=== PATIENT | male | born 1995 | race Caucasian/White ===

== ENCOUNTER 2024-11-27 16:32 | Inpatient (IN) | payer OTHER ==
[~2024-11-27] VITALS: Ht 162.6 cm; Wt 76.9 kg
[2024-11-27 17:09] LABS: BASOPHILS % (AUTO) 0.3 % (0.0-2.0); EOSINOPHILS % (AUTO) 1.9 % (1.0-6.0); HEMATOCRIT 36.5 % (41-53); HEMOGLOBIN 12.7 g/dL (13.5-17.5); LYMPHOCYTES # (AUTO) 1.4 K/uL (1.0-4.8); LYMPHOCYTES % (AUTO) 19.3 % (22.0-44.0); MEAN CORPUSCULAR HEMOGLOBIN 34.2 pg (26.0-34.0); MEAN CORPUSCULAR HGB CONC 34.9 G/dL (31.0-37.0); MEAN CORPUSCULAR VOLUME 98 fL (80-100); MONOCYTES # (AUTO) 0.4 K/uL (0.1-1.0); NEUTROPHILS # (AUTO) 5.2 K/uL (1.8-7.7); NEUTROPHILS % (AUTO) 72.5 % (40.0-70.0); PLATELET COUNT (AUTO) 145 K/uL (150-450); RED BLOOD CELL COUNT(AUTO) 3.73 MIL/uL (4.50-5.90); RED CELL DISTRIBUTION WIDTH 14.4 % (11.5-14.5); WHITE BLOOD COUNT (AUTO) 7.1 K/uL (4.5-11.0)
[2024-11-27 17:18] LABS: ANION GAP 10 mmol/L (8-16); CALCIUM, TOTAL 8.3 mg/dL (8.8-10.5); CARBON DIOXIDE 26 mmol/L (22-29); CHLORIDE 104 mmol/L (98-107); CREATININE 0.61 mg/dL (0.60-1.30); GLOMERULAR FILTR. RATE CALC > 60 mL/min (>60); GLUCOSE,RANDOM 101 mg/dL (70-110); POTASSIUM 3.4 mmol/L (3.5-5.1); SODIUM SERUM 140 mmol/L (136-145); UREA NITROGEN, BLOOD 2 mg/dL (7-18)
[2024-11-27 17:24] LABS: PROTHROMBIN TIME 11.1 SEC (9.4-11.6)
[2024-11-27 17:29] LABS: TROPONIN I-HIGH SENSITIVITY Less Than 4 ng/L (<76)
[2024-11-27 17:32] LABS: B-TYPE NATRIURETIC PEPTIDE 76 pg/mL (0-100)
[2024-11-27 17:43] LABS: ALANINE AMINOTRANSFERASE 29 U/L (12-78); ALBUMIN 3.1 g/dL (3.4-5.0); ALKALINE PHOSPHATASE 101 U/L (46-116); ASPARTATE AMINOTRANSFERASE 26 U/L (15-37); BILIRUBIN,TOTAL 0.3 mg/dL (0.1-1.0); CREATINE KINASE, TOTAL ONLY 365 U/L (39-308); TOTAL PROTEIN, SERUM 6.4 g/dL (6.4-8.2)
[2024-11-27 18:10] LABS: APPEARANCE,URINE CLEAR (CLEAR); BILIRUBIN,URINE NEGATIVE (NEGATIVE); COLOR,URINE LIGHT YELLOW (YELLOW); GLUCOSE, URINE (UA) NEGATIVE (NEGATIVE); LEUKOCYTE ESTERASE ,URINE MODERATE (NEGATIVE); NITRATE,URINE POSITIVE (NEGATIVE); OCCULT BLOOD,URINE TRACE (NEGATIVE); PROTEIN,URINE NEGATIVE (NEGATIVE); UROBILINOGEN,URINE <=1.0 mg/dL (<=1.0)
[2024-11-27 18:18] LABS: ALCOHOL, URINE DRUG SCREEN POSITIVE (NEGATIVE); AMPHET/METH SCREEN,URINE NEGATIVE (NEGATIVE); BARBITURATE SCREEN, URINE POSITIVE (NEGATIVE); BENZODIAZEPINES SCREEN,URINE POSITIVE (NEGATIVE); CANNABINOID SCREEN,URINE NEGATIVE (NEGATIVE); COCAINE SCREEN,URINE NEGATIVE (NEGATIVE); METHADONE SCREEN, URINE NEGATIVE (NEGATIVE); OPIATE SCREEN,URINE NEGATIVE (NEGATIVE); PHENCYCLIDINE SCREEN,URINE NEGATIVE (NEGATIVE)
[2024-11-27 18:45] LABS: BACTERIA,URINE Moderate /HPF (None Seen); RBC,URINE 0-2 /HPF (0-2); SQUAMOUS EPITHELIAL CELL,UR Few /LPF (None Seen)
[2024-11-27] MEDS: CefTRIAXone 1 GM/DEXTROSE 50 ML IV ONE (20:50)
[2024-11-27] MEDS: MAGNESIUM SULFATE 2 GM, MVI, ADULT NO.1 WITH VIT K 10 ML, THIAMINE 100 MG, FOLIC ACID 1... IV ONE (21:17)
[2024-11-27] MEDS: LORazepam 2 MG/ML VIAL IVP ONE ×2 (21:41)
[2024-11-27] MEDS ORDERED: BISACODYL 10 MG RECTAL RECTAL SUPPOSITORY PR PRN (23:30)
[2024-11-27] MEDS ORDERED: ALBUTEROL SULFATE 2.5 MG/0.5 ML NEB SOLUTION NEB PRN (23:30)
[2024-11-27] MEDS ORDERED: MAGNESIUM HYDROXIDE SUSPENSION 30 ML UDCUP PO PRN (23:30)
[2024-11-27] MEDS ORDERED: ZOLPIDEM TARTRATE 5 MG TABLET PO PRN (23:30)
[2024-11-27] MEDS ORDERED: IPRATROPIUM BROMIDE 0.5 MG/2.5 ML NEB SOLUTION NEB PRN (23:30)
[2024-11-27] MEDS: SODIUM CHLORIDE 0.9% 1,000 ML IV ONE (23:52)
[2024-11-28] MEDS: HEPARIN SODIUM,PORCINE 5,000 UNITS/ML VIAL SQ SCH (00:11)
[2024-11-28] MEDS: ChlordiazePOXIDE HCL 25 MG CAPSULE PO PRN ×2 (00:11→12:12)
[2024-11-28] MEDS: HYDROCODONE/ACETAMINOPHEN 5-325 MG TABLET PO PRN (03:45)
[2024-11-28 03:55] VITALS: BP 140/83; PULSE 75; RESP 21; TEMP 97.7; O2SAT 97
[2024-11-28] MEDS ORDERED: MAGNESIUM SULFATE 2 GM/WATER 50 ML IV PRN (04:00)
[2024-11-28] MEDS ORDERED: POTASSIUM CHL 10 MEQ/WATER 50 ML IV PRN (04:00)
[2024-11-28] MEDS ORDERED: MAGNESIUM OXIDE 400 MG TABLET PO PRN (04:00)
[2024-11-28] MEDS ORDERED: MAGNESIUM SULFATE 4 GM/WATER 100 ML IV PRN (04:00)
[2024-11-28] MEDS ORDERED: DEXTROSE 50%-WATER 25 GM/50 ML SYRINGE IVP PRN (04:00)
[2024-11-28] MEDS: POTASSIUM CHLORIDE 20 MEQ ER TABLET PO PRN (04:04)
[2024-11-28 06:20] VITALS: BP 144/87; PULSE 80; RESP 20; TEMP 98.1; O2SAT 98
[2024-11-28] MEDS: ChlordiazePOXIDE HCL 25 MG CAPSULE PO SCH (08:38)
[2024-11-28] MEDS: PANTOPRAZOLE SODIUM 40 MG DR TABLET PO SCH (08:39)
[2024-11-28] MEDS: MORPHINE SULFATE 2 MG/ML SYRINGE IVP PRN (08:39)
[2024-11-28 09:04] VITALS: BP 142/86; PULSE 83; RESP 18; TEMP 98.1; O2SAT 97
[2024-11-28] MEDS: ACETAMINOPHEN 325 MG TABLET PO PRN (11:35)
[2024-11-28 12:00] VITALS: BP 130/86; PULSE 86; RESP 18; TEMP 103; O2SAT 99
[2024-11-28] MEDS: ONDANSETRON HCL 4 MG/2 ML VIAL IVP PRN (13:47)
[2024-11-28 13:48] VITALS: BP 143/110; PULSE 114; RESP 18; TEMP 98.7; O2SAT 97
[2024-11-28] MEDS: 1: MAGNESIUM SULFATE 2 GM, MVI, ADULT NO.1 WITH VIT K 10 ML, THIAMINE 100 MG, FOLIC ACID IV SCH (13:55)
[2024-11-28 14:31] VITALS: BP 143/110; PULSE 114; RESP 18; TEMP 98.7; O2SAT 97
[2024-11-29] VITALS: BP 99/65; PULSE 77; RESP 18; TEMP 97.5; O2SAT 99
[2024-11-29 02:26] LABS: GLUCOMETER DEV NAME(LOC) 5S.1D; GLUCOSE,POINT OF CARE 140 MG/DL (70-110)
[2024-11-29 04:00] VITALS: BP 109/48; PULSE 68; RESP 18; TEMP 98.1; O2SAT 98
[2024-11-29 07:10] LABS: GLUCOMETER DEV NAME(LOC) 5N.2C; GLUCOSE,POINT OF CARE 128 MG/DL (70-110)
[2024-11-29 11:28] VITALS: BP 173/125; PULSE 101; RESP 18; TEMP 98.3; O2SAT 100
[2024-11-29 12:30] VITALS: BP 125/93; PULSE 91
[2024-11-29 17:00] VITALS: BP 149/117; PULSE 94; RESP 18; TEMP 99.1; O2SAT 98
[2024-11-29 20:03] VITALS: BP 134/90; PULSE 73; RESP 17; TEMP 97.4; O2SAT 98
[2024-11-29 22:19] LABS: ANION GAP 7 mmol/L (8-16); CALCIUM, TOTAL 7.9 mg/dL (8.8-10.5); CARBON DIOXIDE 28 mmol/L (22-29); CHLORIDE 104 mmol/L (98-107); GLOMERULAR FILTR. RATE CALC > 60 mL/min (>60); GLUCOSE,RANDOM 145 mg/dL (70-110); POTASSIUM 4.4 mmol/L (3.5-5.1); SODIUM SERUM 139 mmol/L (136-145); UREA NITROGEN, BLOOD 6 mg/dL (7-18)
[2024-11-29 22:28] LABS: ALANINE AMINOTRANSFERASE 16 U/L (12-78); ALBUMIN 2.4 g/dL (3.4-5.0); ALKALINE PHOSPHATASE 76 U/L (46-116); ASPARTATE AMINOTRANSFERASE 13 U/L (15-37); BILIRUBIN,TOTAL 0.2 mg/dL (0.1-1.0); TOTAL PROTEIN, SERUM 5.8 g/dL (6.4-8.2)
[2024-11-30 00:11] VITALS: BP 105/64; PULSE 61; RESP 18; TEMP 97.4; O2SAT 95
[2024-11-30 01:14] VITALS: BP 127/92; PULSE 65; RESP 18; TEMP 98.5; O2SAT 98
[2024-11-30] MEDS ORDERED: SODIUM CHLORIDE 0.9% 0 ML ONE (04:03)
[2024-11-30 07:11] LABS: BASOPHILS % (AUTO) 0.3 % (0.0-2.0); EOSINOPHILS % (AUTO) 5.7 % (1.0-6.0); HEMATOCRIT 33.3 % (41-53); HEMOGLOBIN 11.8 g/dL (13.5-17.5); LYMPHOCYTES # (AUTO) 1.1 K/uL (1.0-4.8); LYMPHOCYTES % (AUTO) 32.1 % (22.0-44.0); MEAN CORPUSCULAR HEMOGLOBIN 34.9 pg (26.0-34.0); MEAN CORPUSCULAR HGB CONC 35.4 G/dL (31.0-37.0); MEAN CORPUSCULAR VOLUME 99 fL (80-100); MONOCYTES # (AUTO) 0.3 K/uL (0.1-1.0); MONOCYTES % (AUTO) 9.7 % (2.0-9.0); NEUTROPHILS # (AUTO) 1.8 K/uL (1.8-7.7); NEUTROPHILS % (AUTO) 52.2 % (40.0-70.0); PLATELET COUNT (AUTO) 140 K/uL (150-450); RED BLOOD CELL COUNT(AUTO) 3.38 MIL/uL (4.50-5.90); RED CELL DISTRIBUTION WIDTH 14.6 % (11.5-14.5); WHITE BLOOD COUNT (AUTO) 3.4 K/uL (4.5-11.0)
[2024-11-30 08:07] VITALS: BP 144/83; PULSE 51; RESP 18; TEMP 97.6; O2SAT 100
[2024-11-30] MEDS: ChlordiazePOXIDE HCL 10 MG CAPSULE PO SCH (08:34)
[2024-11-30] MEDS: ChlordiazePOXIDE HCL 10 MG CAPSULE PO PRN (10:50)
[2024-11-30 18:04] VITALS: BP 142/97; PULSE 75; RESP 17; TEMP 98.3; O2SAT 98
[2024-11-30 21:40] VITALS: BP 148/102; PULSE 79; RESP 18; TEMP 98.1; O2SAT 98
[2024-12-01 05:20] VITALS: BP 148/99; PULSE 79; RESP 18; TEMP 98.4; O2SAT 99
[2024-12-01 06:05] LABS: BASOPHILS % (AUTO) 0.4 % (0.0-2.0); EOSINOPHILS % (AUTO) 3.9 % (1.0-6.0); HEMATOCRIT 36.3 % (41-53); HEMOGLOBIN 12.8 g/dL (13.5-17.5); LYMPHOCYTES # (AUTO) 0.9 K/uL (1.0-4.8); LYMPHOCYTES % (AUTO) 23.5 % (22.0-44.0); MEAN CORPUSCULAR HEMOGLOBIN 34.7 pg (26.0-34.0); MEAN CORPUSCULAR HGB CONC 35.1 G/dL (31.0-37.0); MEAN CORPUSCULAR VOLUME 99 fL (80-100); MONOCYTES # (AUTO) 0.5 K/uL (0.1-1.0); MONOCYTES % (AUTO) 12.7 % (2.0-9.0); NEUTROPHILS # (AUTO) 2.2 K/uL (1.8-7.7); NEUTROPHILS % (AUTO) 59.5 % (40.0-70.0); PLATELET COUNT (AUTO) 192 K/uL (150-450); RED BLOOD CELL COUNT(AUTO) 3.67 MIL/uL (4.50-5.90); RED CELL DISTRIBUTION WIDTH 14.7 % (11.5-14.5); WHITE BLOOD COUNT (AUTO) 3.8 K/uL (4.5-11.0)
[2024-12-01 08:15] VITALS: BP 139/101; PULSE 82; RESP 18; TEMP 98.6; O2SAT 97
[2024-12-01] MEDS ORDERED: SODIUM CHLORIDE 0.9% 1,000 ML ONE (08:36)
[2024-12-01] MEDS: ChlordiazePOXIDE HCL 10 MG CAPSULE PO PRN (08:44)
[2024-12-01 10:36] LABS: RBC MORPHOLOGY COMMENT ABNORMAL RBC MORPH
[2024-12-01] MEDS: LORazepam 2 MG/ML VIAL IVP ONE (15:23)
[2024-12-01 16:07] VITALS: BP 128/96; PULSE 78; RESP 19; TEMP 98.4; O2SAT 100
[2024-12-01] MEDS: CefTRIAXone 1 GM/DEXTROSE 50 ML IV SCH (16:25)
[2024-12-01] MEDS: DIAZEPAM 5 MG TABLET PO SCH (16:26)
[2024-12-01 16:42] LABS: INFLUENZA A-RTPCR,COMBO NEGATIVE (NEGATIVE); INFLUENZA B-RTPCR,COMBO NEGATIVE (NEGATIVE); RESPIRATORY SYNCYTIAL VRS-PCR NEGATIVE (NEGATIVE); SARS COVID19 RTPCR, COMBO NEGATIVE (NEGATIVE)
[2024-12-01 19:46] VITALS: BP 115/72; PULSE 72; RESP 18; TEMP 98.3; O2SAT 96
[2024-12-02 04:00] VITALS: BP 156/96; PULSE 58; RESP 20; TEMP 97.6; O2SAT 100
[2024-12-02 07:16] LABS: BASOPHILS % (AUTO) 0.8 % (0.0-2.0); EOSINOPHILS % (AUTO) 5.6 % (1.0-6.0); HEMATOCRIT 36.9 % (41-53); HEMOGLOBIN 13.1 g/dL (13.5-17.5); LYMPHOCYTES # (AUTO) 1.2 K/uL (1.0-4.8); LYMPHOCYTES % (AUTO) 31.4 % (22.0-44.0); MEAN CORPUSCULAR HEMOGLOBIN 34.8 pg (26.0-34.0); MEAN CORPUSCULAR HGB CONC 35.5 G/dL (31.0-37.0); MEAN CORPUSCULAR VOLUME 98 fL (80-100); MONOCYTES # (AUTO) 0.5 K/uL (0.1-1.0); MONOCYTES % (AUTO) 12.8 % (2.0-9.0); NEUTROPHILS # (AUTO) 1.8 K/uL (1.8-7.7); NEUTROPHILS % (AUTO) 49.4 % (40.0-70.0); PLATELET COUNT (AUTO) 210 K/uL (150-450); RED BLOOD CELL COUNT(AUTO) 3.77 MIL/uL (4.50-5.90); RED CELL DISTRIBUTION WIDTH 14.2 % (11.5-14.5); WHITE BLOOD COUNT (AUTO) 3.7 K/uL (4.5-11.0)
[2024-12-02 08:30] VITALS: BP 151/104; PULSE 65; RESP 19; TEMP 97.9; O2SAT 100
[2024-12-02] MEDS ORDERED: SODIUM CHLORIDE 0.9% 1,000 ML ONE (11:09)
[2024-12-02] MEDS: LORazepam 2 MG/ML VIAL IVP PRN (12:55)
[2024-12-02 20:10] VITALS: BP 145/102; PULSE 84; RESP 18; TEMP 97.9; O2SAT 97
[2024-12-03 05:21] VITALS: BP 127/72; PULSE 62; RESP 19; TEMP 97.2; O2SAT 98
[2024-12-03 07:44] LABS: EOSINOPHILS % (AUTO) 5.2 % (1.0-6.0); HEMATOCRIT 37.5 % (41-53); HEMOGLOBIN 13.4 g/dL (13.5-17.5); LYMPHOCYTES # (AUTO) 1.8 K/uL (1.0-4.8); LYMPHOCYTES % (AUTO) 30.3 % (22.0-44.0); MEAN CORPUSCULAR HEMOGLOBIN 34.9 pg (26.0-34.0); MEAN CORPUSCULAR HGB CONC 35.6 G/dL (31.0-37.0); MEAN CORPUSCULAR VOLUME 98 fL (80-100); MONOCYTES # (AUTO) 0.7 K/uL (0.1-1.0); MONOCYTES % (AUTO) 11.9 % (2.0-9.0); NEUTROPHILS % (AUTO) 51.6 % (40.0-70.0); PLATELET COUNT (AUTO) 231 K/uL (150-450); RED BLOOD CELL COUNT(AUTO) 3.82 MIL/uL (4.50-5.90); RED CELL DISTRIBUTION WIDTH 14.4 % (11.5-14.5); WHITE BLOOD COUNT (AUTO) 5.8 K/uL (4.5-11.0)
[2024-12-03 08:21] VITALS: BP 121/74; PULSE 76; RESP 20; TEMP 97.8; O2SAT 100
[2024-12-03] MEDS ORDERED: SODIUM CHLORIDE 0.9% 1,000 ML ONE (14:05)
[2024-12-03] MEDS ORDERED: DIAZEPAM 5 MG TABLET PO PRN (17:15)
[2024-12-03 18:40] VITALS: BP 128/95; PULSE 62; RESP 20; TEMP 97.5; O2SAT 96
[2024-12-03] MEDS: MORPHINE SULFATE 2 MG/ML SYRINGE IVP ONE (18:47)
[2024-12-03 19:44] VITALS: BP 117/90; PULSE 72; RESP 18; TEMP 97.7; O2SAT 95
[2024-12-03] MEDS: TraZODone HCL 50 MG TABLET PO SCH (20:46)
[2024-12-03] MEDS: BusPIRone HCL 10 MG TABLET PO SCH (20:46)
[2024-12-03] MEDS: GABAPENTIN 300 MG CAPSULE PO SCH (20:47)
[2024-12-04 03:34] VITALS: BP 129/87; PULSE 51; RESP 18; TEMP 97.5; O2SAT 97
[2024-12-04 07:36] VITALS: BP 137/76; PULSE 74; RESP 18; TEMP 98.3; O2SAT 100
[2024-12-04 12:30] LABS: BASOPHILS % (AUTO) 0.4 % (0.0-2.0); EOSINOPHILS % (AUTO) 3.4 % (1.0-6.0); HEMATOCRIT 44.2 % (41-53); HEMOGLOBIN 15.2 g/dL (13.5-17.5); LYMPHOCYTES # (AUTO) 1.5 K/uL (1.0-4.8); LYMPHOCYTES % (AUTO) 22.3 % (22.0-44.0); MEAN CORPUSCULAR HEMOGLOBIN 33.6 pg (26.0-34.0); MEAN CORPUSCULAR HGB CONC 34.4 G/dL (31.0-37.0); MEAN CORPUSCULAR VOLUME 98 fL (80-100); MONOCYTES # (AUTO) 0.3 K/uL (0.1-1.0); NEUTROPHILS # (AUTO) 4.6 K/uL (1.8-7.7); NEUTROPHILS % (AUTO) 68.9 % (40.0-70.0); PLATELET COUNT (AUTO) 301 K/uL (150-450); RED BLOOD CELL COUNT(AUTO) 4.53 MIL/uL (4.50-5.90); RED CELL DISTRIBUTION WIDTH 14.4 % (11.5-14.5); WHITE BLOOD COUNT (AUTO) 6.7 K/uL (4.5-11.0)
[2024-12-04] MEDS ORDERED: SODIUM CHLORIDE 0.9% 500 ML IV ONE (14:11)
[2024-12-04 15:45] VITALS: BP 133/78; PULSE 73; RESP 18; TEMP 98.2; O2SAT 97
[2024-12-04 20:04] VITALS: BP 152/96; PULSE 60; RESP 18; TEMP 99; O2SAT 97
[2024-12-05 04:42] VITALS: BP 125/89; PULSE 58; RESP 18; TEMP 97.8; O2SAT 100
[2024-12-05 08:25] VITALS: BP 134/88; PULSE 62; RESP 18; TEMP 98.2; O2SAT 98
[2024-12-05 10:02] LABS: BASOPHILS % (AUTO) 0.5 % (0.0-2.0); EOSINOPHILS % (AUTO) 3.8 % (1.0-6.0); HEMATOCRIT 43.4 % (41-53); HEMOGLOBIN 15.4 g/dL (13.5-17.5); LYMPHOCYTES # (AUTO) 1.9 K/uL (1.0-4.8); LYMPHOCYTES % (AUTO) 25.5 % (22.0-44.0); MEAN CORPUSCULAR HEMOGLOBIN 34.7 pg (26.0-34.0); MEAN CORPUSCULAR HGB CONC 35.5 G/dL (31.0-37.0); MEAN CORPUSCULAR VOLUME 98 fL (80-100); MONOCYTES # (AUTO) 0.5 K/uL (0.1-1.0); MONOCYTES % (AUTO) 6.4 % (2.0-9.0); NEUTROPHILS # (AUTO) 4.8 K/uL (1.8-7.7); NEUTROPHILS % (AUTO) 63.8 % (40.0-70.0); PLATELET COUNT (AUTO) 290 K/uL (150-450); RED BLOOD CELL COUNT(AUTO) 4.45 MIL/uL (4.50-5.90); RED CELL DISTRIBUTION WIDTH 14.3 % (11.5-14.5); WHITE BLOOD COUNT (AUTO) 7.5 K/uL (4.5-11.0)
[2024-12-05] MEDS ORDERED: SODIUM CHLORIDE 0.9% 500 ML IV ONE (14:54)
[2024-12-05 19:38] VITALS: BP 133/78; PULSE 63; RESP 19; TEMP 98.5; O2SAT 99
[2024-12-06 04:41] VITALS: BP 118/69; PULSE 53; RESP 18; TEMP 98; O2SAT 99
[2024-12-06 07:44] VITALS: BP 119/72; PULSE 65; RESP 18; TEMP 98.2; O2SAT 98
[2024-12-06] MEDS ORDERED: BUSP10TA23 PO (10:21)
[2024-12-06] MEDS ORDERED: GABA-1181 PO (10:21)
[2024-12-06] MEDS ORDERED: TRAZ-252 PO ×2 (10:21→10:25)
== END 2024-12-06 12:40 | disposition home or self-care (01) | DRG 775 ==
LOC: EMS 16:32 → EDBD 16:32 → EDH 11-28 00:02 → 5S 11-28 03:23 → 6S 11-30 00:47
PROVIDERS: ADMIT Hospitalist; ATTEND Hospitalist
PROC: HZ2ZZZZ Detoxification Services for Substance Abuse Treatment (ICD-10-PCS; principal; 2024-11-28)
DX: F10.239 Alcohol dependence with withdrawal, unspecified (principal); A41.9 Sepsis, unspecified organism; D61.818 Other pancytopenia; E44.0 Moderate protein-calorie malnutrition; F33.2 Major depressive disorder, recurrent severe without psychotic features; B96.1 Klebsiella pneumoniae [K. pneumoniae] as the cause of diseases classified elsewhere; E11.9 Type 2 diabetes mellitus without complications; E87.6 Hypokalemia; F41.9 Anxiety disorder, unspecified; I10 Essential (primary) hypertension; N39.0 Urinary tract infection, site not specified; Z20.822 Contact with and (suspected) exposure to COVID-19; R07.89 Other chest pain; Y90.4 Blood alcohol level of 80-99 mg/100 ml; Z63.4 Disappearance and death of family member; Z59.00 Homelessness unspecified; Z68.29 Body mass index [BMI] 29.0-29.9, adult
CPT/HCPCS: 0241U; 71045; 80048; 80053; 80076; 80307; 81001; 82040; 82550; 82962; 83735; 83880; 84132; 84484; 85025; 85610; 85730; 87077; 87086; 87186; 93005; 99285; G0480; J0696; J1644; J2060; J2270; J2405; J3411; J3475; J3490; J7030; J7040; 36415-L1; 36415-TC